=== PATIENT | male | born 1995 | race Caucasian/White ===

== ENCOUNTER 2016-09-02 12:08 | Emergency (ER) | payer BC, OTHER ==
[2016-09-02 12:21] VITALS: BP 132/80
[2016-09-02] MEDS ORDERED: Ondansetron 4 MG/2 ML SDV IVPUSH ONE (12:44)
[2016-09-02] MEDS ORDERED: Sodium Chloride 0.9% 10 ML Syringe FLUSH PRN (12:44)
--- NOTE | 2016-09-02 12:51 | EDM.PDOC ---
ED HPI GENERAL MEDICAL PROBLEM - General Chief Complaint: Gastrointestinal Problem Stated Complaint: VOMITING Time Seen by Provider: 09/02/16 12:26 Source of Information: Reports: Patient History Limitations: Reports: No Limitations - History of Present Illness INITIAL COMMENTS - FREE TEXT/NARRATIVE: Patient is a 21-year-old male who presents to the ED complaining of nausea, vomiting, and diarrhea. Patient states approximately 4:00 this morning he awoke and vomited x3. Went back to bed and upon awakening at approximately 11:00 this morning has had diarrhea 10-13 times throughout the course of the day. There's been no blood within his emesis or diarrhea. He is mildly nauseated with poor appetite. He has attempted to drink some fluids with difficulties in keeping down. There's been no recent sick exposures or bad/questionable food intake. Denies recent out of country travel. He has no prior history of similar symptoms and has not been taking any recent antibiotics. Denies any fever, shortness of breath, chest pain, dizziness, pain with urination, or lightheadedness. He does have some mild tenderness to his abdomen described as generalized crampy sensation mild in nature. Patient has no additional past medical history and is taking no medications. Denies any surgical history to his abdomen. Onset: Today Onset Date: 09/02/16 Onset Time: 04:00 Duration: Intermittent Location: Reports: Abdomen Quality: Reports: Other (crampy) Severity: Mild Improves with: Reports: None Worsens with: Reports: Eating Context: Denies: Sick Contact Associated Symptoms: Reports: Loss of Appetite, Malaise, Nausea/Vomiting. Denies: Chest Pain, Fever/Chills, Headaches, Shortness of Breath Treatments OPHTHALMIC MEDICAL TECHNOLOGIST: Reports: Other (see below) (none stated) Abdomen Pain Score (Numeric/FACES): 6 - Related Data Allergies Allergy/AdvReac Type Severity Reaction Status Date / Time meperidine [From Demerol] Allergy Agitation Verified 12/09/15 16:20 Home Meds: Home Meds Ondansetron [Zofran ODT] 4 mg PO Q6H PRN #10 tab.dis 09/02/16 [Rx] Past Medical History - Past Surgical History HEENT Surgical History: Reports: Tonsillectomy Social & Family History - Tobacco Use Smoking Status *Q: Former Smoker Years of Tobacco use: 1 Packs/Tins Daily: 0.2 Used Tobacco, but Quit: Yes Month Tobacco Last Used: 1 month - Caffeine Use Caffeine Use: Reports: Soda, Tea - Recreational Drug Use Recreational Drug Use: No ED ROS GENERAL - Review of Systems Review Of Systems: See Below Constitutional: Reports: Malaise, Fatigue, Decreased Appetite. Denies: Fever, Chills HEENT: Reports: No Symptoms Respiratory: Reports: No Symptoms Cardiovascular: Reports: No Symptoms GI/Abdominal: Reports: Abdominal Pain, Diarrhea, Nausea, Vomiting : Denies: Dysuria Musculoskeletal: Reports: No Symptoms Skin: Denies: Rash Neurological: Denies: Dizziness ED EXAM, GI/ABD - Physical Exam Exam: See Below Exam Limited By: No Limitations General Appearance: Alert, WD/WN, No Apparent Distress Ears: Hearing Grossly Normal Nose: Normal Inspection Throat/Mouth: Normal Inspection, Normal Voice, No Airway Compromise, Other (Dry oral mucosa) Neck: Normal Inspection, Supple Respiratory/Chest: No Respiratory Distress, Lungs Clear, Normal Breath Sounds, No Accessory Muscle Use, Chest Non-Tender Cardiovascular: Normal Peripheral Pulses, Regular Rate, Rhythm, No Murmur GI/Abdominal: Normal Bowel Sounds, Soft, No Organomegaly, No Distention, Tenderness (mild epigastric discomfort). No: Distention, Guarding, McBurney's Sign, Mora's Sign Back Exam: Normal Inspection. No: CVA Tenderness (L), CVA Tenderness (R) Neurological: Alert, Oriented, CN II-XII Intact, Normal Cognition, No Motor/ Sensory Deficits Psychiatric: Normal Affect, Normal Mood Skin Exam: Warm, Dry, Intact, Normal Color Course - Vital Signs Last Recorded V/S: Last Vital Signs Temp 98.4 F 09/02/16 12:20 Pulse 115 H 09/02/16 12:20 Resp 20 09/02/16 12:20 BP 132/80 09/02/16 12:20 Pulse Ox 96 09/02/16 12:20 - Orders/Labs/Meds Orders: Active Orders 24 hr Category Date Time Status Peripheral IV Care [RC] . DIRECTED Care 09/02/16 12:44 Active CULTURE STOOL + SHIGATOX [RM] Stat Lab 09/02/16 12:45 Uncollected NOROVIRUS GROUP 1 & 2 RT-PCR Stat Lab 09/02/16 12:45 Ordered ROTAVIRUS DIRECT ANTIGEN STOOL [OP] Stat Lab 09/02/16 12:45 Uncollected WBC, STOOL [OP] Stat Lab 09/02/16 12:45 Uncollected Sodium Chloride 0.9% [Saline Flush] Med 09/02/16 12:44 Active 10 ml FLUSH ASDIRECTED PRN Peripheral IV Insertion Adult [OM.PC] Stat Oth 09/02/16 12:44 Ordered Medication Orders Sodium Chloride (Saline Flush) 10 ml FLUSH ASDIRECTED PRN PRN Reason: Keep Vein Open Last Admin: 09/02/16 13:01 Dose: 10 ml Labs: Laboratory Tests 09/02/16 09/02/16 Range/Units 12:58 12:58 WBC 11.68 H (4.23-9.07) K/mm3 RBC 5.69 (4.63-6.08) M/mm3 Hgb 16.9 (13.7-17.5) gm/L Hct 48.3 (40.1-51.0) % MCV 84.9 (79.0-92.2) fl MCH 29.7 (25.7-32.2) pg MCHC 35.0 (32.2-35.5) g/dl RDW Std Deviation 39.3 (35.1-43.9) fL Plt Count 184 (163-337) K/mm3 MPV 10.9 (9.4-12.3) fl Neut % (Auto) 86.9 H (34.0-67.9) % Lymph % (Auto) 6.8 L (21.8-53.1) % Swift % (Auto) 5.7 (5.3-12.2) % Eos % (Auto) 0.3 L (0.8-7.0) Baso % (Auto) 0.1 (0.1-1.2) % Neut # (Auto) 10.14 H (1.78-5.38) K/mm3 Lymph # (Auto) 0.80 L (1.32-3.57) K/mm3 Swift # (Auto) 0.67 (0.30-0.82) K/mm3 Eos # (Auto) 0.04 (0.04-0.54) K/mm3 Baso # (Auto) 0.01 (0.01-0.08) K/mm3 Manual Slide Review Normal smear Sodium 139 (136-145) mEq/L Potassium 3.9 (3.5-5.1) mEq/L Chloride 105 (98-107) mEq/L Carbon Dioxide 26 (21-32) mEq/L Anion Gap 11.9 (5-15) BUN 13 (7-18) mg/dL Creatinine 1.2 (0.7-1.3) mg/dL Est Cr Clr Drug Dosing 102.84 mL/min Estimated GFR (MDRD) > 60 (>60) mL/min BUN/Creatinine Ratio 10.8 L (14-18) Glucose 106 (74-106) mg/dL Calcium 8.8 (8.5-10.1) mg/dL Total Bilirubin 0.9 (0.2-1.0) mg/dL AST 16 (15-37) U/L ALT 45 (16-63) U/L Alkaline Phosphatase 95 (46-116) U/L Total Protein 7.4 (6.4-8.2) g/dl Albumin 3.9 (3.4-5.0) g/dl Globulin 3.5 gm/dL Albumin/Globulin Ratio 1.1 (1-2) Lipase 69 L (73-393) U/L Meds: Medications Generic Name Dose Route Start Last Admin Trade Name Freq PRN Reason Stop Dose Admin Sodium Chloride 10 ml 09/02/16 12:44 09/02/16 13:01 Saline Flush FLUSH 10 ml ASDIRECTED PRN Administration Keep Vein Open Discontinued Medications Generic Name Dose Route Start Last Admin Trade Name Freq PRN Reason Stop Dose Admin Sodium Chloride 2,000 mls @ 999 mls/hr 09/02/16 12:44 09/02/16 14:03 Normal Saline IV 09/02/16 14:44 999 mls/hr ONETIME ONE Administration Sodium Chloride Confirm 09/02/16 14:04 Normal Saline Administered 09/02/16 14:05 Dose 1,000 mls @ as directed .ROUTE .STK-MED ONE Ondansetron HCl 4 mg 09/02/16 12:44 09/02/16 13:01 Zofran IVPUSH 09/02/16 12:45 4 mg ONETIME ONE Administration - Re-Assessments/Exams Free Text/Narrative Re-Assessment/Exam: 09/02/16 12:49 Ordered a peripheral IV with normal saline 999 mL per hour and Zofran 4 mg IVP. Initial labs and studies include CBC, chem 14, lipase, viral stool panel, and stool wbc, and stool culture. 09/02/16 13:42 Labs were reviewed essentially normal. Reassessment, patient states abdominal discomfort has just improved with the above therapies. 09/02/16 15:01 Reassessment, patient is sleeping soundly in bed. Upon awakening hehas no complaints his way to be discharged home. We'll discharge patient home with instructions and prescription for Zofran. He has had no bowel movements since first arrival to the ED. Does not feel the need. Departure - Departure Time of Disposition: 15:02 Disposition: Home, Self-Care 01 Condition: good Clinical Impression: Gastroenteritis - Discharge Information Prescriptions: Ondansetron [Zofran ODT] 4 mg PO Q6H PRN #10 tab.dis PRN Reason: Nausea/Vomiting Instructions: Viral Gastroenteritis, Adult, [id number], Nausea and Vomiting, Adult, [id number], Abdominal Pain, Adult, [id number], Diarrhea, Adult, Easy- to-Read Forms: ED Department Discharge Additional Instructions: Take the Zofran 4 mg ODT for nausea every 6 hours as needed. Push the fluids. Stick with a clear liquid diet for the next 48 hours. Advance to a bland diet if tolerated for 24 hrs and to normal diet thereafter. Refrain from fruit juices, raw fruits/vegetables, milk, spicy foods, or any additional aggravating foods. Follow up with primary care provider at [facility] in [place] if symptoms persist through this next week. Return to ED for any new or worsening symptoms. - My Orders Last 24 Hours: My Active Orders 09/02/16 12:44 Peripheral IV Care [RC] . DIRECTED Sodium Chloride 0.9% [Saline Flush] 10 ml FLUSH ASDIRECTED PRN Peripheral IV Insertion Adult [OM.PC] Stat 09/02/16 12:45 CULTURE STOOL + SHIGATOX [RM] Stat NOROVIRUS GROUP 1 & 2 RT-PCR Stat ROTAVIRUS DIRECT ANTIGEN STOOL [OP] Stat WBC, STOOL [OP] Stat - Assessment/Plan Last 24 Hours: My Active Orders 09/02/16 12:44 Peripheral IV Care [RC] . DIRECTED Sodium Chloride 0.9% [Saline Flush] 10 ml FLUSH ASDIRECTED PRN Peripheral IV Insertion Adult [OM.PC] Stat 09/02/16 12:45 CULTURE STOOL + SHIGATOX [RM] Stat NOROVIRUS GROUP 1 & 2 RT-PCR Stat ROTAVIRUS DIRECT ANTIGEN STOOL [OP] Stat WBC, STOOL [OP] Stat
[2016-09-02] MEDS: Sodium Chloride 0.9% 2,000 ML IV ONE ×2 (12:59→14:03)
[2016-09-02] MEDS ORDERED: Sodium Chloride 0.9% 1,000 ML ONE (14:04)
== END 2016-09-02 15:27 | disposition home or self-care (01) ==
LOC: JD.ED 12:08
DX: K52.9 Noninfective gastroenteritis and colitis, unspecified (principal); Z87.891 Personal history of nicotine dependence; Z98.890 Other specified postprocedural states; Z88.5 Allergy status to narcotic agent
CPT/HCPCS: 36415; 80053; 83690; 85025; 96361; 96374; 99284; J2405; J7040; J7050

== ENCOUNTER 2022-05-14 16:38 | Emergency (ER) | payer BC, OTHER ==
[2022-05-14 16:51] VITALS: BP 120/85; PULSE 115
[2022-05-14] MEDS ORDERED: Sodium Chloride 0.9% 10 ML Syringe FLUSH PRN (16:53)
[2022-05-14] MEDS ORDERED: methylPREDNISolone Sodium Succinate 125 MG/2 ML SDV IVPUSH ONE (16:54)
[2022-05-14] MEDS: Albuterol 0.083% 2.5 MG/3 ML Neb Soln NEB SCH ×3 (17:09→18:33)
[2022-05-14] MEDS ORDERED: Albuterol 6.7 GM Inhaler INH ONE (17:40)
[2022-05-14 17:47] LABS: ESTIMATED GFR 77 mL/min (>60)
== END 2022-05-14 18:25 | disposition home or self-care (01) ==
LOC: JD.ED 16:38 → EDSEX 16:38 → JD.ED 18:25
DX: J45.909 Unspecified asthma, uncomplicated (principal); Z88.5 Allergy status to narcotic agent
CPT/HCPCS: 36415; 80053; 85025; 86140; 94640; 96374; 99285; A9270; J2930; J3490; 99284; J7620-GY

== ENCOUNTER 2024-01-01 23:12 | Emergency (ER) | payer BC ==
[2024-01-02 00:37] VITALS: BP 123/75; PULSE 74
== END 2024-01-02 00:32 | disposition home or self-care (01) ==
LOC: JD.ED 23:12
DX: R03.0 Elevated blood-pressure reading, without diagnosis of hypertension (principal); E66.9 Obesity, unspecified; Z79.899 Other long term (current) drug therapy; Z88.5 Allergy status to narcotic agent; Z68.41 Body mass index [BMI] 40.0-44.9, adult
CPT/HCPCS: 99283

== ENCOUNTER 2024-12-21 09:50 | Emergency (ER) | payer BC ==
[2024-12-21] MEDS: Ondansetron 4 MG Tab.DIS PO ONE (11:23)
[2024-12-21] MEDS: Acetaminophen/oxyCODONE 325-5 MG Tab PO ONE (11:24)
[2024-12-21 11:25] VITALS: BP 142/89; PULSE 71
== END 2024-12-21 12:15 | disposition home or self-care (01) ==
LOC: JD.ED 09:50
DX: K12.1 Other forms of stomatitis (principal); F17.210 Nicotine dependence, cigarettes, uncomplicated; J45.909 Unspecified asthma, uncomplicated; Z88.5 Allergy status to narcotic agent; Z79.899 Other long term (current) drug therapy; Z86.16 Personal history of COVID-19
CPT/HCPCS: 99283; 99284; A9270-GY; J7512